=== PATIENT | male | born 1985 | race African-American/Black ===

== ENCOUNTER 2022-11-25 12:04 | Emergency (ER) | payer SELFPAY ==
[~2022-11-25] VITALS: Ht 185.4 cm; Wt 77.0 kg
[2022-11-25 12:07] VITALS: BP 123/56
[2022-11-26] MEDS ORDERED: T3 PO (18:42)
[2022-11-26] MEDS ORDERED: IBUP-2029 MT (18:42)
== END 2022-11-25 13:42 | disposition home or self-care (01) ==
LOC: ER 12:04
DX: R07.89 Other chest pain (principal)
CPT/HCPCS: 93005; 99283

== ENCOUNTER 2022-11-26 16:00 | Emergency (ER) | payer SELFPAY ==
[~2022-11-26] VITALS: Ht 185.4 cm; Wt 78.0 kg
[2022-11-26 16:43] VITALS: BP 111/63
[2022-11-26] MEDS ORDERED: IBUP-2029 MT (18:42)
[2022-11-26] MEDS ORDERED: T3 PO (18:42)
== END 2022-11-26 19:42 | disposition home or self-care (01) ==
LOC: ER 16:00
DX: S42.291A Other displaced fracture of upper end of right humerus, initial encounter for closed fracture (principal); Y04.0XXA Assault by unarmed brawl or fight, initial encounter; Y93.89 Activity, other specified; Y92.89 Other specified places as the place of occurrence of the external cause; Y99.8 Other external cause status
CPT/HCPCS: 73060; 99283